=== PATIENT | male | born 1965 | race Caucasian/White ===

== ENCOUNTER 2020-12-07 09:31 | Outpatient (CLI) | payer OTHER, SELFPAY ==
--- NOTE | ~2020-12-07 | MR_ITS ---
EXAMINATION: MR foot LT wo con DATE: 12/07/2020 11:04 INDICATION: Left foot pain. TECHNIQUE: Magnetic resonance imaging (MRI) of the left foot was performed without intravenous contra st. Sequences included sagittal T1-weighted FSE and STIR FSE, long-axis PD-weighted FS FSE and PD-montana ghted FSE, and short-axis PD-weighted FS FSE and T1-weighted FSE. COMPARISON: None FINDINGS: A bunionette is noted. No fracture. There is moderate osteoarthritis of first metatarsophal angeal joint and mild osteoarthritis of some of the interphalangeal joints and midfoot joints. Lisfra nc ligament is normal. The flexor and extensor tendons are normal. The muscles are unremarkable. Ther e is mild bursitis between the heads of the second and third metatarsals. There is a skin marker plan tar to the second proximal phalanx. IMPRESSION: 1. Polyarticular osteoarthritis. Reviewed, dictated and finalized at location A.
== END 2020-12-07 09:32 | disposition home or self-care (01) ==
LOC: CHSIMG 09:34
PROVIDERS: PCP Family Medicine; Visit Provider Podiatrist Foot & Ankle Surgery
DX: M77.51 Other enthesopathy of right foot and ankle (principal); M79.671 Pain in right foot; M79.672 Pain in left foot
CPT/HCPCS: 73718

== ENCOUNTER 2021-01-01 09:44 | Outpatient (CLI) | payer OTHER, SELFPAY ==
[2021-01-01 09:54] LABS: Hemoglobin 15.9 g/dL (14.0-18.0); Mean Corpuscular HGB Conc 35.3 g/dL (32.0-36.0); Mean Corpuscular Hemoglobin 29.9 pg (27.0-31.0); Mean Corpuscular Volume 84.6 fL (78.0-102.0); Mean Platelet Volume 9.4 fl (8.7-11.0); Platelet Count Result 195 K/mm3 (150-420); Red Blood Count 5.32 M/mm3 (4.70-6.10); Red Cell Distribution Width 12.8 % (11.6-14.4); White Blood Count 6.9 K/mm3 (4.8-10.8)
[2021-01-01 10:32] LABS: Alanine Aminotransferase 116 U/L (16-63); Albumin Level 3.8 g/dL (3.4-5.0); Alkaline Phosphatase 250 U/L (46-116); Anion Gap 6 mmol/L (8-16); Aspartate Amino Transferase 49 U/L (15-37); Bilirubin,Total 1.2 mg/dL (0.00-1.00); Blood Urea Nitrogen 18 mg/dL (7-18); Calcium 9.3 mg/dL (8.5-10.1); Carbon Dioxide 31 mmol/L (21-32); Chloride 98 mmol/L (98-108); Cholesterol 273 mg/dL (0-200); Estimated Glomerular Filt Rate > 60; Glucose 333 mg/dL (70-99); HDL Direct 34 mg/dL (40-60); LDL Cholesterol Calculated 172 mg/dL (<130); Osmolality Calculated 294 mOsm/kg (285-295); Potassium 4.6 mmol/L (3.5-5.1); Sodium 135 mmol/L (136-145); Thyroid Stimulating Hormone 1.48 uIU/mL (0.36-3.74); Total Protein 7.5 g/dL (6.4-8.2); Triglycerides 333 mg/dL (0-150)
== END 2021-01-01 09:45 | disposition home or self-care (01) ==
LOC: CHSLAB 09:46
PROVIDERS: PCP Family Medicine; Visit Provider Family Medicine
DX: I10 Essential (primary) hypertension (principal)
CPT/HCPCS: 36415; 80053; 80061; 84443; 85027

== ENCOUNTER 2021-01-11 09:15 | Outpatient (CLI) | payer OTHER, SELFPAY ==
[2021-01-11 09:35] LABS: Hemoglobin A1C 11.6 % (<5.7)
== END 2021-01-11 09:16 | disposition home or self-care (01) ==
LOC: CHSLAB 09:16
PROVIDERS: PCP Family Medicine; Visit Provider Family Medicine
DX: R73.01 Impaired fasting glucose (principal)
CPT/HCPCS: 36415; 83036

== ENCOUNTER 2021-04-11 10:03 | Outpatient (CLI) | payer OTHER, SELFPAY ==
[2021-04-11 10:55] LABS: Alanine Aminotransferase 82 U/L (16-63); Alkaline Phosphatase 259 U/L (46-116); Anion Gap 12 mmol/L (8-16); Aspartate Amino Transferase 42 U/L (15-37); Bilirubin,Total 0.9 mg/dL (0.00-1.00); Blood Urea Nitrogen 22 mg/dL (7-18); Calcium 9.3 mg/dL (8.5-10.1); Carbon Dioxide 27 mmol/L (21-32); Chloride 98 mmol/L (98-108); Estimated Glomerular Filt Rate > 60; Glucose 186 mg/dL (70-99); Osmolality Calculated 292 mOsm/kg (285-295); Potassium 4.7 mmol/L (3.5-5.1); Sodium 137 mmol/L (136-145); Total Protein 7.6 g/dL (6.4-8.2)
[2021-04-18 04:20] LABS: Hepatitis A Antibody IgM Nonreactive; Hepatitis B Core Antibody Nonreactive (Nonreactive); Hepatitis B Surface Antigen Nonreactive (Nonreactive); Hepatitis C Virus Antibody Nonreactive (Nonreactive)
== END 2021-04-11 10:04 | disposition home or self-care (01) ==
LOC: CHSLAB 10:05
PROVIDERS: PCP Nurse Practitioner Family; Visit Provider Nurse Practitioner Family
DX: R74.8 Abnormal levels of other serum enzymes (principal)
CPT/HCPCS: 36415; 80053; 80074

== ENCOUNTER 2021-04-14 08:00 | Outpatient (CLI) | payer OTHER, SELFPAY ==
--- NOTE | ~2021-04-14 | US_ITS ---
EXAMINATION: US abdomen limited EXAM DATE: 04/14/2021 08:19 INDICATION: R74.8 - Abnormal levels of other serum enzymes. TECHNIQUE: Multiple grayscale and Doppler images of the abdomen right upper quadrant were obtained (b y a technologist who performed the scan) and subsequently reviewed. There is no prior study for yaneth milton. FINDINGS: The pancreatic head and body are normal in appearance. The pancreatic tail is not visualized. The l iver has normal echogenicity and contour. There are no focal liver lesions identified. There is no evidence of intrahepatic biliary duct dilation. Portal venous flow was seen in the hepatopedal, nor mal direction and has normal Doppler waveform. No right-sided hydronephrosis. Common bile duct measures 3 mm, which is normal. The gallbladder wall is normal in thickness, with ex pected amount of distention. No sonographic evidence of pericholecystic fluid. There is no cholelit hiases. Technologist performing exam reports patient did not demonstrate sonographic Sutherland's sign. Please note that this sign is less reliable in patients who have received pain medication. IMPRESSION: 1. Unremarkable abdominal ultrasound exam. Reviewed, dictated and finalized at location B. ALS REFEREE
== END 2021-04-14 08:01 | disposition home or self-care (01) ==
LOC: CHSIMG 08:02
PROVIDERS: PCP Nurse Practitioner Family; Visit Provider Nurse Practitioner Family
DX: R74.8 Abnormal levels of other serum enzymes (principal)
CPT/HCPCS: 76705

== ENCOUNTER 2021-09-01 07:29 | Outpatient (CLI) | payer OTHER, SELFPAY ==
[2021-09-01 07:58] LABS: Cholesterol 171 mg/dL (0-200); HDL Direct 63 mg/dL (40-60); LDL Cholesterol Calculated 80 mg/dL (<130); Triglycerides 142 mg/dL (0-150)
== END 2021-09-01 07:30 | disposition home or self-care (01) ==
PROVIDERS: PCP Nurse Practitioner Family; Visit Provider Nurse Practitioner Family
DX: E78.5 Hyperlipidemia, unspecified (principal)
CPT/HCPCS: 36415; 80061

== ENCOUNTER 2022-06-12 10:28 | Outpatient (CLI) | payer OTHER, SELFPAY ==
--- NOTE | 2022-06-12 10:33 | ECG_ITS ---
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
== END 2022-06-12 10:29 | disposition home or self-care (01) ==
LOC: CHSCARD 10:30
PROVIDERS: PCP Nurse Practitioner Family; Visit Provider Nurse Practitioner Family
DX: R55 Syncope and collapse (principal); R94.31 Abnormal electrocardiogram [ECG] [EKG]; R00.0 Tachycardia, unspecified
CPT/HCPCS: 93005

== ENCOUNTER 2022-06-12 11:17 | Emergency (ER) | payer OTHER, SELFPAY ==
[2022-06-12] VITALS (28 sets, daily range): BP systolic 102–127; BP diastolic 72–98; PULSE 102–114; RESP 11–25; TEMP 36.4–36.6; O2SAT 93–99
--- NOTE | ~2022-06-12 | XR_ITS ---
EXAMINATION: XR chest 2V DATE: 06/12/2022 12:09 INDICATION: Dizziness and tachycardia. TECHNIQUE: Frontal and lateral views of the chest were obtained. COMPARISON: None. FINDINGS: Marzena B-lines are noted, consistent mild pulmonary edema. There are trace pleural effusion s. No pneumothorax. The heart size is normal. IMPRESSION: 1. Mild pulmonary edema and trace pleural effusions. Reviewed, dictated and finalized at location A. SFER SPECIALIST
--- NOTE | ~2022-06-12 | CT_ITS ---
EXAMINATION: CT brain wo con INDICATION: Dizziness COMPARISON: None TECHNIQUE: Standard unenhanced head CT. The dose-length product (DLP) was 681.00 mGy-cm. The mA was a djusted according to patient size. Iterative reconstruction technique was employed. FINDINGS: There is no intracranial hemorrhage, acute infarction, or abnormal mass lesion. The ventric les are normal. There is no abnormal mass effect or midline shift. The gaffney-white matter differentiat ion is normal. The basal cisterns are patent. The orbits are normal. The paranasal sinuses, mastoids and calvarium are normal. IMPRESSION: 1. No acute intracranial abnormality. Reviewed, dictated and finalized at location B. UNITY DEVELOPMENT COORDINATOR
--- NOTE | 2022-06-12 11:47 | ED.GENADULT ---
HPI - General Adult General Chief complaint: Dizziness Stated complaint: light headed Time Seen by Provider: 06/12/22 11:31 History of Present Illness HPI narrative: The patient is a 57-year-old male with history of hypertension, GERD, hyperlipidemia, depression, and diabetes. For approximately 6-8 weeks, the patient's blood pressure that he monitors at home has been on the low side, 95 systolic over 60 diastolic. In consultation with his blocker heated metal forms, his amlodipine has been discontinued about 6 weeks ago. His blood pressure has remained somewhat on the low side. On 06/10/2022, 2 days ago, the patient had a near syncopal episode in a grocery store. He checked his blood pressure when he got home, it was 78/49 with a pulse of 92. He was seen in the office that day. Influenza testing and COVID-19 testing was negative. His remaining blood pressure medication, Toprol XL once daily, was decreased from 100 mg daily to a dose of 50 mg daily. Blood work was ordered. We do not have access to those results. He was seen again in clinic today due to continued symptoms of lightheadedness dizziness and near syncope. His EKG revealed ST depressions in the inferior leads. He was referred here for further workup and management. The patient denies chest pain or discomfort or tightness in the chest. No dyspnea. No abdominal pain. No nausea vomiting. No pedal edema. No fevers or chills or diaphoresis. No URI or UTI symptoms. Related Data Home Medications Medication Instructions Recorded Confirmed alprazolam 0.5 mg tablet 0.5 mg PO BID 06/01/19 06/12/22 paroxetine HCl 30 mg tablet 30 mg PO DAILY 06/01/19 06/12/22 metformin 1,000 mg tablet 1,000 mg PO BID 04/11/21 06/12/22 rosuvastatin 40 mg tablet 40 mg PO DAILY 06/10/22 06/12/22 amitriptyline 25 mg tablet 50 mg PO HS 06/12/22 06/12/22 dulaglutide 1.5 mg/0.5 mL 1.5 mg subcut WEEKLY 06/12/22 06/12/22 subcutaneous pen injector (Trulicity) empagliflozin 10 mg tablet 10 mg PO DAILY 06/12/22 06/12/22 (Jardiance) pregabalin 100 mg capsule 100 mg PO BID 06/12/22 06/12/22 Allergies Allergy/AdvReac Type Severity Reaction Status Date / Time azithromycin Allergy Intermediate Unknown Verified 06/12/22 10:55 [Zithromax Z-Kalia] clindamycin [Cleocin] Allergy Intermediate Unknown Verified 06/12/22 10:55 Review of Systems Review of Systems: All systems reviewed & are unremarkable except as noted in HPI and below Constitutional: Constitutional: Reports no additional constitutional complaints, Denies anorexia, Denies body ache(s), Denies chills, Denies excessive sweating, Denies fatigue, Denies fever(s), Denies frequent falls, Denies headache(s), Denies malaise and Denies poor appetite Eyes: Eyes: Reports no additional eye complaints, Denies blurry vision, Denies change in vision, Denies irritation, Denies itchy eyes and Denies photophobia ENT: Reports system reviewed and no additional complaints, except as documented, Reports Normal hearing present, Denies change in voice, Denies dysphagia, Denies vertigo, Reports dizziness, Denies ear discharge, Denies headache(s), Denies hearing loss, Denies hoarseness, Denies nasal congestion, Denies neck pain, Denies sinus pressure, Denies sore throat and Denies throat swelling Cardiovascular: Cardiovascular: Reports no additional cardiovascular complaints, Denies chest pain, Denies syncope, Denies rapid heart rate, Denies irregular heart rhythm, Denies leg edema, Denies dyspnea and Denies slow heart rate Respiratory: Respiratory: Reports no additional respiratory complaints, Denies cough, Denies dyspnea, Denies stridor and Denies wheezing Gastrointestinal: Gastrointestinal: Reports no additional gastrointestinal complaints, Denies abdominal pain, Denies melena, Denies hematochezia, Denies dysphagia, Denies diarrhea, Denies nausea and Denies vomiting Genitourinary: Genitourinary: Denies hematuria, Denies oliguria, Denies dysuria, Denies flank pain, Jesse
--- NOTE | 2022-06-12 12:08 | PC.NURSE ---
elevated troponin of 2765.5, erp is made aware.
[2022-06-12] MEDS: MECLIZINE HCL 25 MG TABLET 50 MG PO (12:10)
[2022-06-12] MEDS: SODIUM CHLORIDE 0.9% IV 1,000 ML 999 ML IV CONT (12:12)
[2022-06-12 12:19] LABS: Basophils Absolute Auto 0.07 K/mm3 (0.00-0.10); Basophils Percent Auto 0.9 % (0.0-1.0); Eosinophils Absolute Auto 0.12 K/mm3 (0.02-0.50); Eosinophils Percent Auto 1.6 % (1.0-6.0); Hematocrit 42.3 % (40.0-54.0); Hemoglobin 14.1 g/dL (14.0-18.0); Immature Granulocyte Absolute 0.02 K/mm3 (0.00-0.00); Immature Granulocyte Percent A 0.3 % (0.0-0.0); Lymphocytes Percent Auto 18.3 % (18.0-42.0); Mean Corpuscular HGB Conc 33.3 g/dL (32.0-36.0); Mean Corpuscular Hemoglobin 30.7 pg (27.0-31.0); Mean Platelet Volume 9.7 fl (8.7-11.0); Monocytes Absolute Auto 1.14 K/mm3 (0.10-0.90); Monocytes Percent Auto 14.9 % (2.0-11.0); Neutrophils Absolute Auto 4.9 K/mm3 (1.7-7.2); Platelet Count Result 154 K/mm3 (150-420); Red Cell Distribution Width 14.5 % (11.6-14.4); White Blood Count 7.7 K/mm3 (4.8-10.8)
[2022-06-12 12:20] LABS: Add Urine Microscopic? YES; Appearance Urine Clear (Clear); Bilirubin Urine Negative (Negative); Blood Urine 1+ (Negative); Color Urine Light Yellow (Yellow); Glucose Urine UA 3+ (Negative); Ketones Urine Negative (Negative); Leukocyte Esterase Ur Negative LEU/UL (Negative); Nitrate Urine Negative (Negative); Protein Urine 1+ (Negative)
[2022-06-12 12:25] LABS: Amphetamine Screen Urine Negative (Negative); Barbiturate Screen Urine Negative (Negative); Benzodiazepines Screen Urine Negative (Negative); Cannabinoid Screen Urine Negative (Negative); Cocaine Screen Urine Negative (Negative); Methadone Screen Urine Negative (Negative); Opiate Screen Urine Negative (Negative); Phencyclidine Screen Urine Negative (Negative)
[2022-06-12 12:30] LABS: D Dimer 0.37 mg/L (0.19-0.50)
[2022-06-12 12:35] LABS: Bacteria Urine Trace /hpf; RBC Urine 0-2 /hpf (0-2); WBC Urine None seen /hpf (0-3)
[2022-06-12 12:36] LABS: Lactic Acid Reflex 2.2 mmol/L (0.4-2.0)
[2022-06-12 12:45] LABS: Alanine Aminotransferase 99 U/L (16-63); Alkaline Phosphatase 271 U/L (46-116); Anion Gap 12 mmol/L (8-16); Aspartate Amino Transferase 88 U/L (15-37); Bilirubin,Total 1.2 mg/dL (0.00-1.00); Blood Urea Nitrogen 26 mg/dL (7-18); Calcium 8.9 mg/dL (8.5-10.1); Carbon Dioxide 25 mmol/L (21-32); Chloride 99 mmol/L (98-108); Estimated Glomerular Filt Rate 50; Ethanol < 3 mg/dL (0-6); Glucose 164 mg/dL (70-99); Magnesium 2.3 mg/dL (1.8-2.4); Osmolality Calculated 290 mOsm/kg (285-295); Potassium 4.5 mmol/L (3.5-5.1); Sodium 136 mmol/L (136-145)
[2022-06-12 12:49] LABS: CRP 2.8 mg/dL (0.0-0.9); NT Pro B Type Natriuretic Pept 3264 pg/mL (0-125)
[2022-06-12 12:52] LABS: Thyroid Stimulating Hormone Reflex 2.31 u/IU/mL (0.36-3.74)
[2022-06-12 13:23] LABS: Erythrocyte Sedimentation Rate 28 mm/hr (0-20)
[2022-06-12 13:29] LABS: INR 1.1; Partial Thromboplastin Time 31.7 SEC (23.90-30.70); Prothrombin Time 11.9 Seconds (9.50-12.10)
[2022-06-12] MEDS: HEPARIN SODIUM 5,000 UNITS/ML VIAL 4000 UNITS IV PUSH (13:38)
[2022-06-12] MEDS: ASPIRIN 81 MG CHEWABLE TABLET 324 MG PO (13:38)
[2022-06-12 14:07] LABS: SARS-CoV-2 Ag Negative (Negative)
[2022-06-12] MEDS: FUROSEMIDE INJ 40 MG/4 ML VIAL IV PUSH (14:47)
[2022-06-12] MEDS: METOPROLOL TARTRATE INJ 5 MG/5 ML VIAL IV PUSH (14:51)
[2022-06-12] MEDS: HEPARIN SOD/D5W 100 UNITS/ML 25,000 UNITS/250 ML BAG 10 UNITS IV CONT (14:56)
[2022-06-12 15:14] LABS: Reflex Lactic Acid Yes or No Add Lactic
[2022-06-12 15:49] LABS: Glucose Point of Care 138 mg/dl (65-105)
[2022-06-12 16:10] LABS: Troponin I 3009.6 ng/L (0.00-60.4)
--- NOTE | 2022-06-12 16:10 | PC.NURSE ---
Elevated troponin of 3009.6, ERP is made aware.
[2022-06-12 16:26] LABS: Lactic Acid 2.3 mmol/L (0.4-2.0)
--- NOTE | 2022-06-12 16:53 | PC.NURSE ---
heparin infusion continued during transfer.
== END 2022-06-12 16:52 | disposition short-term general hospital (02) ==
PROVIDERS: Emergency Provider Emergency Medicine; PCP Family Medicine
DX: I21.4 Non-ST elevation (NSTEMI) myocardial infarction (principal); R55 Syncope and collapse; R60.9 Edema, unspecified; N17.9 Acute kidney failure, unspecified; I10 Essential (primary) hypertension; E78.5 Hyperlipidemia, unspecified; E11.9 Type 2 diabetes mellitus without complications; F32.A Depression, unspecified; Z79.84 Long term (current) use of oral hypoglycemic drugs; Z20.822 Contact with and (suspected) exposure to COVID-19
CPT/HCPCS: 36415; 70450; 71046; 80053; 80307; 81001; 82948; 83605; 83735; 83880; 84443; 84484; 85025; 85380; 85610; 85652; 85730; 86140; 87426; 96361; 96365; 96375; 99285; A9270; C9803; J1644; J1940; J7030

== ENCOUNTER 2022-11-06 08:00 | Outpatient (RCR) | payer OTHER, SELFPAY | END 2022-11-06 13:00 | disposition home or self-care (01) | PROVIDERS: PCP Family Medicine; Visit Provider Family Medicine | DX: Z95.5 Presence of coronary angioplasty implant and graft (principal) | CPT/HCPCS: 93798 ==

== ENCOUNTER 2023-04-19 11:06 | Outpatient (CLI) | payer OTHER, SELFPAY ==
--- NOTE | ~2023-04-19 | XR_ITS ---
[id number] 04/19/2023 11:32 Indication: Left foot pain. Diabetic foot ulcer. Procedure: 4 views left foot Comparison: No prior studies for comparison. Findings: There is moderate osteoarthritis of the first MTP joint. Osteopenia. Lisfranc joint intact. No acute fracture or traumatic malalignment. No focal soft tissue abnormality. Impression: 1: Moderate osteoarthritis of the first MTP joint. Reviewed, dictated and finalized at location A. ER COATER Impression: 1: Moderate osteoarthritis of the first MTP joint.
== END 2023-04-19 11:07 | disposition home or self-care (01) ==
LOC: CHSIMG 11:09
PROVIDERS: PCP Nurse Practitioner Family
DX: M19.072 Primary osteoarthritis, left ankle and foot (principal); M79.672 Pain in left foot
CPT/HCPCS: 73630